=== PATIENT | female | born 1995 | race African-American/Black ===

== ENCOUNTER 2017-08-19 12:58 | Emergency (ER) | payer MEDICAID, OTHER ==
--- NOTE | 2017-08-19 14:48 | ED Physician Documentation ---
PD HPI SYNCOPE - Stated complaint Stated Complaint: PASSED OUT - Chief complaint Chief Complaint: General - History obtained from History obtained from: Patient, Family (mother) - History of Present Illness Witnessed: Witnessed Timing - onset: Today Duration: Seconds (Patient has been feeling ill, achy, tired, with fevers and URI symptoms. Less oral intake but no vomiting nor diarrhea.) Preceding symptoms: Headache (mild to moderate with standing up.), Nausea / vomiting (nausea but no vomiting), Light headed, Generalized weakness. No: Vision changes, Chest pain, Abdominal pain Associated symptoms: No: Seizure, Chest pain, Abdominal pain Contributing factors: Decreased PO intake (for few days along with viral flu- like symptoms), Just stood up Injury occurred: Fell. No: Head injury, Neck injury Similar symptoms before: Has not had sx before Recently seen: Not recently seen Review of Systems Constitutional: reports: Fever, Chills, Myalgias, Fatigue (for several days) Eyes: denies: Loss of vision, Photophobia Nose: reports: Rhinorrhea / runny nose, Congestion, Sinus pressure / pain Throat: reports: Sore throat Respiratory: reports: Cough GI: reports: Nausea. denies: Abdominal Pain, Vomiting, Diarrhea : denies: Dysuria (but says her urine has been very dark), Frequency Skin: denies: Rash Musculoskeletal: denies: Neck pain, Back pain Neurologic: reports: Generalized weakness. denies: Focal weakness, Numbness, Altered mental status, Head injury Endocrine: denies: Weight loss, Weight gain Immunocompromised: denies: Immunocompromised PD PAST MEDICAL HISTORY - Past Medical History Cardiovascular: None Respiratory: None Neuro: None Endocrine/Autoimmune: None - Present Medications Home Medications: Ambulatory Orders Medication Instructions Recorded Confirmed Dexamethasone [Decadron] 4 mg PO DAILY #5 tablet 08/19/17 Ondansetron Odt [Zofran] 4 mg TL Q6H PRN #15 tablet 08/19/17 - Allergies Allergies/Adverse Reactions: Allergies Allergy/AdvReac Type Severity Reaction Status Date / Time No Known Drug Allergies Allergy Verified 08/19/17 13:20 PD ED PE NORMAL - Vitals Vital signs reviewed: Yes - General General: Alert and oriented X 3, No acute distress, Well developed/nourished - HEENT HEENT: Atraumatic, Ears normal, Pharynx benign. 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, No motor deficit, No sensory deficit, Normal speech Eye Opening: Spontaneous Motor: Obeys Commands Verbal: Oriented GCS Score: 15 - Psych Psych: Normal mood Results - Vitals Vitals: Oxygen O2 Source Room air - Labs Labs: Laboratory Tests 08/19/17 08/19/17 08/19/17 15:50 15:50 15:50 WBC 9.4 RBC 4.57 Hgb 12.0 Hct 37.4 MCV 81.8 MCH 26.2 L MCHC 32.0 RDW 14.0 Plt Count 265 MPV 8.0 Neut # 8.0 H Lymph # 0.5 L Morton # 0.9 Eos # 0.0 Baso # 0.0 Absolute Nucleated RBC 0.00 Nucleated RBC % 0.0 Sodium 134 L Potassium 3.8 Chloride 100 L Carbon Dioxide 23 Anion Gap 11.0 BUN 9 Creatinine 0.8 Estimated GFR (MDRD) 111 Glucose 98 Calcium 9.1 Total Bilirubin 0.5 AST 14 ALT 10 Alkaline Phosphatase 52 Total Protein 8.0 Albumin 4.2 Globulin 3.8 Albumin/Globulin Ratio 1.1 Lipase < 10 L TSH 0.19 L Thyroxine (T4) Total T3 T3 Uptake Urine Color Urine Clarity Urine pH Ur Specific [place] Urine Protein Urine Glucose (UA) Urine Ketones Urine Occult Blood Urine Nitrite Urine Bilirubin Urine Urobilinogen Ur Leukocyte Esterase Ur Microscopic Review Urine Culture Comments Urine HCG, Qual 08/19/17 08/19/17 08/19/17 15:50 17:12 17:12 WBC RBC Hgb Hct MCV MCH MCHC RDW Plt Count MPV Neut # Lymph # Morton # Eos # Baso # Absolute Nucleated RBC Nucleated RBC % Sodium Potassium Chloride Carbon Dioxide Anion Gap BUN Creatinine Estimated GFR (MDRD) Glucose Calcium Total Bilirubin AST ALT Alkaline Phosphatase Total Protein Albumin Globulin Albumin/Globulin Ratio Lipase TSH Thyroxine (T4) 5.83 L Total T3 0.82 L T3 Uptake 40.2 Urine Color YELLOW Urine Clarity CLEAR Urine pH 6.0 Ur Specific [place] 1.020 1.015 Urine Protein NEGATIVE Urine Glucose (UA) NEGATIVE Urine Ketones TRACE Urine Occult Blood NEGATIVE Urine Nitrite NEGATIVE Urine Bilirubin NEGATIVE Urine Urobilinogen 0.2 (NORMAL) Ur Leukocyte Esterase NEGATIVE Ur Microscopic Review NOT INDICATED Urine Culture Comments NOT INDICATED Urine HCG, Qual NEGATIVE - Rads (name of study) chest Radiology: Prelim report reviewed (no infiltrates) PD MEDICAL DECISION MAKING - ED course Complexity details: reviewed results (Lytes and blood count okay. Not sure how to interpret the thyroid labs with both T3/T4 low and TSH low, not really making sense. Defer for now to PMD. Consider U/S of the thyroid in setting of recent viral-like illness. ), re-evaluated patient (feeling better with IV fluids and does well with postural vitals. ), considered differential, d/w patient Departure - Departure Disposition: 01 Home, Self Care Clinical Impression: Viral illness, Dehydration, Abnormal TSH Syncope Qualifiers: Syncope type: unspecified Qualified Code(s): R55 - Syncope and collapse Condition: Stable Record reviewed to determine appropriate education?: Yes Instructions: ED Dehydration, ED Viral Syndrome Follow-Up: Dolores Dominguez PA-C [Primary Care Provider] - Prescriptions: Dexamethasone [Decadron] 4 mg PO DAILY #5 tablet Ondansetron Odt [Zofran] 4 mg TL Q6H PRN #15 tablet PRN Reason: Nausea / Vomiting Comments: Drink lots of fluids. Ondansetron if needed for nausea. Tylenol or ibuprofen if needed for fevers or pains. Decadron daily for 5 more days for inflammation. At this point it sounds flu or viral-like. No signs of bacterial infection. Recheck if not improving over the next few days. Follow- up with your primary care regarding further evaluation of the abnormal thyroid tests. Forms: Activity restrictions Discharge Date/Time: 08/19/17 19:32
[2017-08-19] MEDS ORDERED: SODIUM CHLORIDE 0.9% 1,000 ML IV ONE ×2 (15:31→15:32)
[2017-08-19] MEDS ORDERED: ONDANSETRON 4 MG/2 ML VIAL IVP STA (15:31)
[2017-08-19 16:01] LABS: BASOPHILS % (AUTO) 0.4 %; LYMPHOCYTES # (AUTO) 0.5 10^3/uL (1.5-3.5); LYMPHOCYTES % (AUTO) 5.5 %; MEAN CORPUSCULAR HEMOGLOBIN 26.2 pg (27.0-31.0); MEAN CORPUSCULAR VOLUME 81.8 fL (81.0-99.0); MONOCYTES # (AUTO) 0.9 10^3/uL (0.0-1.0); NEUTROPHILS % (AUTO) 85.1 %; PLT - PLATELET COUNT 265 10^3/uL (130-450); RED BLOOD COUNT 4.57 10^6/uL (4.20-5.40); WHITE BLOOD COUNT 9.4 x10^3/uL (4.8-10.8)
--- NOTE | 2017-08-19 16:25 | XRAY Preliminary Report ---
Exam: XR CHEST 2 VIEW X-RAY IMPRESSION: Negative chest. [facility] SITE ID: [id number]
--- NOTE | 2017-08-19 16:26 | XRAY Report ---
EXAM: CHEST RADIOGRAPHY EXAM DATE: 08/19/2017 04:01 PM. CLINICAL HISTORY: Cough and dyspnea. COMPARISON: None. TECHNIQUE: 2 views. FINDINGS: Lungs/Pleura: No focal opacities evident. No pleural effusion. No pneumothorax. Normal volumes. Mediastinum: Heart and mediastinal contours are unremarkable. Other: None. IMPRESSION: Negative chest. [facility] Referring Provider Line: [phone] SITE ID: [id number]
[2017-08-19 16:34] LABS: ALBUMIN 4.2 g/dL (3.2-5.5); ALBUMIN/GLOBULIN RATIO 1.1 (1.0-2.2); ALKALINE PHOSPHATASE 52 IU/L (42-121); ALT ALANINE AMINOTRANSFERASE 10 IU/L (10-60); AST ASPARTATE AMINOTRANSFERASE 14 IU/L (10-42); BILIRUBIN,TOTAL 0.5 mg/dL (0.2-1.0); BUN - BLOOD UREA NITROGEN 9 mg/dL (6-20); CALCIUM 9.1 mg/dL (8.5-10.3); CARBON DIOXIDE - CO2 23 mmol/L (21-32); CHLORIDE 100 mmol/L (101-111); CREATININE 0.8 mg/dL (0.4-1.0); GFR - MDRD 111 (>89); GLUCOSE 98 mg/dL (70-100); SODIUM 134 mmol/L (135-145)
[2017-08-19 16:35] LABS: LIPASE < 10 U/L (22-51)
[2017-08-19 17:02] LABS: T3 UPTAKE 40.2 % (32.0-48.4)
[2017-08-19 17:03] LABS: T4 (THYROXINE) 5.83 ug/dL (6.09-12.23)
[2017-08-19 17:12] LABS: TOTAL T3 0.82 ng/mL (0.87-1.78)
[2017-08-19 17:18] LABS: BILIRUBIN,URINE NEGATIVE (NEGATIVE); GLUCOSE, URINE (UA) NEGATIVE (NEGATIVE); KETONES,URINE (UA) TRACE mg/dL (NEGATIVE); LEUKOCYTE ESTERASE, URINE NEGATIVE (NEGATIVE); NITRITE,URINE NEGATIVE (NEGATIVE); OCCULT BLOOD,URINE NEGATIVE (NEGATIVE); PROTEIN,URINE NEGATIVE (NEGATIVE); UROBILINOGEN,URINE 0.2 (NORMAL) E.U./dL (NORMAL)
[2017-08-19 17:20] LABS: CLARITY,URINE CLEAR (CLEAR)
[2017-08-19] MEDS ORDERED: DEXAMETHASONE 10 MG/ML VIAL IVP STA (17:39)
[2017-08-19 19:31] VITALS: BP 126/81
[2017-08-19 19:43] LABS: HCG UR QUAL NEGATIVE
== END 2017-08-19 19:32 | disposition home or self-care (01) ==
LOC: ED 12:58
DX: B34.9 Viral infection, unspecified (principal); E86.0 Dehydration; R94.6 Abnormal results of thyroid function studies; R55 Syncope and collapse
CPT/HCPCS: 36415; 71046; 80053; 81001; 81003; 81025; 83690; 84436; 84443; 84479; 84480; 85025; 87086; 96361; 96374; 96375; 99284

== ENCOUNTER 2017-11-15 10:27 | Outpatient (CLI) | payer OTHER ==
[2017-11-15 12:43] LABS: BASOPHILS # (AUTO) 0.1 10^3/uL (0.0-0.1); BASOPHILS % (AUTO) 0.5 %; EOSINOPHILS % (AUTO) 0.3 %; HGB - HEMOGLOBIN 11.6 g/dL (12.0-16.0); LYMPHOCYTES % (AUTO) 18.2 %; MEAN CORPUSCULAR HEMOGLOBIN 26.6 pg (27.0-31.0); MEAN CORPUSCULAR HGB CONC 32.6 g/dL (32.0-36.0); MEAN CORPUSCULAR VOLUME 81.7 fL (81.0-99.0); MEAN PLATELET VOLUME 8.7 fL (7.9-10.8); MONOCYTES # (AUTO) 0.6 10^3/uL (0.0-1.0); MONOCYTES % (AUTO) 5.6 %; NEUTROPHILS # (AUTO) 8.3 10^3/uL (1.5-6.6); NEUTROPHILS % (AUTO) 75.4 %; PLT - PLATELET COUNT 291 10^3/uL (130-450); RED BLOOD COUNT 4.34 10^6/uL (4.20-5.40); RED CELL DISTRIBUTION WIDTH 14.4 % (12.0-15.0)
[2017-11-15 13:08] LABS: ALBUMIN 4.2 g/dL (3.2-5.5); ALBUMIN/GLOBULIN RATIO 1.4 (1.0-2.2); ALKALINE PHOSPHATASE 46 IU/L (42-121); ALT ALANINE AMINOTRANSFERASE 12 IU/L (10-60); AST ASPARTATE AMINOTRANSFERASE 15 IU/L (10-42); BILIRUBIN,TOTAL 0.5 mg/dL (0.2-1.0); BUN - BLOOD UREA NITROGEN 10 mg/dL (6-20); CALCIUM 8.7 mg/dL (8.5-10.3); CARBON DIOXIDE - CO2 25 mmol/L (21-32); CHLORIDE 104 mmol/L (101-111); CHOL/HDL RATIO 2.9 (<4.4); CHOLESTEROL 141 mg/dL; CREATININE 0.6 mg/dL (0.4-1.0); GFR - MDRD 154 (>89); GLUCOSE 89 mg/dL (70-100); HDL CHOLESTEROL 49 mg/dL; SODIUM 134 mmol/L (135-145); TOTAL PROTEIN 7.3 g/dL (6.7-8.2)
[2017-11-15 13:09] LABS: HB2 TOTAL 12.4 g/dL; HEMOGLOBIN A1C 0.36 g/dL; HEMOGLOBIN A1C % 4.8 % (4.6-6.2)
[2017-11-15 13:11] LABS: THYROID STIMULATING HORMONE 0.91 uIU/mL (0.34-5.60)
[2017-11-15 13:23] LABS: FOLATE 15.65 ng/mL (5.90 - >24.8)
[2017-11-15 13:28] LABS: LDL CHOLESTEROL,DIRECT 72 mg/dL; LDLD/HDL RATIO 1.5 (<4.4)
== END 2017-11-15 10:28 ==
LOC: LAB.WCP 10:27
PROVIDERS: ATTEND Family Medicine
DX: Z00.00 Encounter for general adult medical examination without abnormal findings (principal)
CPT/HCPCS: 36415; 80053; 80061; 82306; 82607; 82746; 83036; 83721; 84443; 85025

== ENCOUNTER 2018-01-11 10:04 | Outpatient (CLI) | payer OTHER ==
[2018-01-11 12:50] LABS: BASOPHILS # (AUTO) 0.1 10^3/uL (0.0-0.1); BASOPHILS % (AUTO) 0.7 %; EOSINOPHILS # (AUTO) 0.1 10^3/uL (0.0-0.7); HGB - HEMOGLOBIN 11.3 g/dL (12.0-16.0); LYMPHOCYTES # (AUTO) 2.3 10^3/uL (1.5-3.5); LYMPHOCYTES % (AUTO) 29.3 %; MEAN CORPUSCULAR HGB CONC 32.6 g/dL (32.0-36.0); MEAN CORPUSCULAR VOLUME 82.8 fL (81.0-99.0); MEAN PLATELET VOLUME 8.7 fL (7.9-10.8); MONOCYTES # (AUTO) 0.5 10^3/uL (0.0-1.0); MONOCYTES % (AUTO) 6.8 %; NEUTROPHILS # (AUTO) 4.8 10^3/uL (1.5-6.6); NEUTROPHILS % (AUTO) 62.2 %; PLT - PLATELET COUNT 277 10^3/uL (130-450); RED BLOOD COUNT 4.17 10^6/uL (4.20-5.40); RED CELL DISTRIBUTION WIDTH 13.6 % (12.0-15.0); WHITE BLOOD COUNT 7.7 x10^3/uL (4.8-10.8)
== END 2018-01-11 10:05 | disposition home or self-care (01) ==
LOC: LAB.WCP 10:04
PROVIDERS: ATTEND Physician Assistant Medical
DX: E55.9 Vitamin D deficiency, unspecified (principal); D50.8 Other iron deficiency anemias
CPT/HCPCS: 36415; 82306; 82728; 85025

== ENCOUNTER 2019-06-17 07:00 | Outpatient (CLI) | payer OTHER ==
[2019-06-17 12:45] LABS: BASOPHILS # (AUTO) 0.1 10^3/uL (0.0-0.1); BASOPHILS % (AUTO) 0.5 %; EOSINOPHILS # (AUTO) 0.1 10^3/uL (0.0-0.7); EOSINOPHILS % (AUTO) 1.3 %; HGB - HEMOGLOBIN 10.6 g/dL (12.0-16.0); LYMPHOCYTES # (AUTO) 1.7 10^3/uL (1.5-3.5); MEAN CORPUSCULAR HEMOGLOBIN 25.5 pg (27.0-31.0); MEAN CORPUSCULAR VOLUME 84.9 fL (81.0-99.0); MEAN PLATELET VOLUME 11.1 fL (7.9-10.8); MONOCYTES # (AUTO) 0.6 10^3/uL (0.0-1.0); MONOCYTES % (AUTO) 5.4 %; NEUTROPHILS # (AUTO) 7.6 10^3/uL (1.5-6.6); NEUTROPHILS % (AUTO) 75.2 %; PLT - PLATELET COUNT 306 10^3/uL (130-450); RED BLOOD COUNT 4.16 10^6/uL (4.20-5.40); WHITE BLOOD COUNT 10.1 x10^3/uL (4.8-10.8)
[2019-06-17 13:28] LABS: HCG,QUALITATIVE BLOOD NEGATIVE
[2019-06-17 21:15] LABS: TRICHOMONAS VAGINALIS DNA NEGATIVE (NEGATIVE)
[2019-06-18 11:42] LABS: HEPATITIS C ANTIBODY NON-REACTIVE (NON-REACTIVE)
[2019-06-18 15:26] LABS: HIV AG/AB 4TH GEN NON-REACTIVE (NON-REACTIVE)
== END 2019-06-17 23:59 | disposition home or self-care (01) ==
LOC: LAB.WCP 07:00
PROVIDERS: ATTEND Physician Assistant Medical
DX: E55.9 Vitamin D deficiency, unspecified (principal); D50.8 Other iron deficiency anemias; Z11.3 Encounter for screening for infections with a predominantly sexual mode of transmission
CPT/HCPCS: 36415; 81599; 82306; 84703; 85025; 86592; 86803; 87389; 87491; 87591; 87661

== ENCOUNTER 2019-12-30 03:40 | Outpatient (CLI) | payer OTHER | END 2019-12-30 03:41 | disposition EMS.NT | LOC: EMS 03:40 | PROVIDERS: ATTEND Surgery | DX: R55 Syncope and collapse (principal); S09.93XA Unspecified injury of face, initial encounter; W18.30XA Fall on same level, unspecified, initial encounter; Y92.002 Bathroom of unspecified non-institutional (private) residence as the place of occurrence of the external cause ==

== ENCOUNTER 2019-12-30 04:29 | Emergency (ER) | payer OTHER ==
--- NOTE | 2019-12-30 05:41 | ED Physician Documentation ---
History of Present Illness - Stated complaint Stated Complaint: EYE LAC - Chief complaint Chief Complaint: Trauma Hd/Nk - History obtained from History obtained from: Patient - Additonal information Additional information: Patient comes emergency department complaining of laceration above right eye after getting up to go the bathroom and then fainting after walking back from the toilet. Patient states she had been feeling fine but had a bowel movement and then began to feel dizzy after she stood up. Patient states she last remembered approaching her bed and then woke up after what she thinks was just a second or 2 on the floor. Patient thinks she did hit her face, she thinks on the nightstand. Other than the laceration above her right eye, no other injuries were sustained. Patient states she otherwise feels fine now. No other complaints at this time. Review of Systems Ten Systems: 10 systems reviewed and negative Constitutional: reports: Reviewed and negative Eyes: reports: Reviewed and negative Ears: reports: Reviewed and negative Nose: reports: Reviewed and negative Throat: reports: Reviewed and negative Cardiac: reports: Reviewed and negative Respiratory: reports: Reviewed and negative GI: reports: Reviewed and negative : reports: Reviewed and negative Skin: reports: Laceration (s) Musculoskeletal: reports: Reviewed and negative Neurologic: reports: Reviewed and negative Psychiatric: reports: Reviewed and negative Endocrine: reports: Reviewed and negative Immunocompromised: reports: Reviewed and negative PD PAST MEDICAL HISTORY - Past Medical History Past Medical History: Yes Cardiovascular: None Respiratory: None Neuro: None Endocrine/Autoimmune: None, Other GI: None 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; hyperthyroidism-resolved - Past Surgical History Past Surgical History: No - Present Medications Home Medications: Ambulatory Orders Medication Instructions Recorded Confirmed No Known Home Medications 12/30/19 12/30/19 - Allergies Allergies/Adverse Reactions: Allergies Allergy/AdvReac Type Severity Reaction Status Date / Time No Known Drug Allergies Allergy Verified 12/30/19 04:39 - Social History Does the pt smoke?: No Smoking Status: Never smoker Does the pt drink ETOH?: Yes Does the pt have substance abuse?: No - Immunizations Immunizations are current?: Yes - POLST Patient has POLST: No PD ED PE NORMAL - Vitals Vital signs reviewed: Yes - General General: Alert and oriented X 3, No acute distress, Well developed/nourished - HEENT HEENT: PERRL, EOMI, Moist mucous membranes, Other (Laceration as noted below. No facial bony deformity. No drooping of right upper eyelid. Patient is able to fully retract her right upper eyelid with looking up.) - Neck Neck: Supple, no meningeal sign - Respiratory Respiratory: No respiratory distress - Derm Derm: Warm and dry, Other (3 cm laceration over the lateral superior orbital rim on the right. Mild soft tissue swelling. Bleeding controlled. No foreign bodies. No other skin trauma.) - Extremities Extremities: No deformity - Neuro Neuro: Alert and oriented X 3 - Psych Psych: Normal mood, Normal affect Results - Vitals Vitals: Vital Signs - 24 hr 12/30/19 04:37 Temperature 36.1 C L Heart Rate 73 Respiratory 18 Rate Blood Pressure 125/65 O2 Saturation 100 Oxygen O2 Source Room air Procedures - Laceration (location) R sup. orbital rim Wound type: Linear Neurovascular status: Sensory intact, Motor intact Tendon involvement: No: Tendon Injury Anesthesia: Marcaine 0.5% Wound Preparation: Hibiclens, Irrigated copiously NS, Wound explored, To the base, Wound edges modified. No: FB identified Skin layer closure: Nylon, Interrupted, Size #-0 - enter number (5), Sutures - enter # (6) Other: Patient tolerated well, No complications, Neurovascular intact, Dressing applied, Tetanus UTD Complexity: Intermediate PD MEDICAL DECISION MAKING - ED course Complexity details: considered differential, d/w patient ED course: I discussed with the patient and her mother, who has accompanied her, principles of wound care. We have discussed that the sutures should plan to be removed in 5 days. The wound can be checked at that time by the patient's primary care physician or urgent care. If the patient needs to return to the emergency department for this, that is also an option. We have discussed signs of infection and the usual indications for return. We have also discussed possible causes for the syncope, but patient is low risk young and healthy, and I feel that most likely, patient's syncope was benign. Departure - Departure Disposition: 01 Home, Self Care Clinical Impression: Laceration Syncope Qualifiers: Syncope type: unspecified Qualified Code(s): R55 - Syncope and collapse Condition: Stable Instructions: ED Laceration All
[2019-12-30 05:57] VITALS: BP 114/76
== END 2019-12-30 05:56 | disposition home or self-care (01) ==
LOC: ED 04:29
DX: S05.41XA Penetrating wound of orbit with or without foreign body, right eye, initial encounter (principal); W22.03XA Walked into furniture, initial encounter; Y93.01 Activity, walking, marching and hiking; Y92.003 Bedroom of unspecified non-institutional (private) residence as the place of occurrence of the external cause; R55 Syncope and collapse
CPT/HCPCS: 12052

== ENCOUNTER 2022-02-05 23:34 | Emergency (ER) | payer SELFPAY ==
[2022-02-05 23:43] VITALS: BP 157/94
--- NOTE | 2022-02-05 23:55 | ED Physician Documentation ---
History of Present Illness - Stated complaint Stated Complaint: RT KNEE PX - Chief complaint Chief Complaint: Heent - History obtained from History obtained from: Patient - History of Present Illness Timing: How many days ago (2) Pain level now: 8 Improved by: rest Worsened by: movement, weight-bearing - Additonal information Additional information: c/o right knee pain, sudden onset when she rolled over in bed and felt "popping" sensation of right knee. Pain was initially mild but it has gradually worsened since onset. Denies h/o similar symptoms. She took 200mg ibuprofen approximately 12 hours ago without noticeable improvement. Review of Systems Musculoskeletal: reports: Joint pain (right knee), Pain with weight bearing. 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 HEENT: Other Psych: None Musculoskeletal: None Derm: None - Past Surgical History Past Surgical History: No - Present Medications Home Medications: Ambulatory Orders Medication Instructions Recorded Confirmed No Known Home Medications 12/30/19 12/30/19 - Allergies Allergies/Adverse Reactions: Allergies Allergy/AdvReac Type Severity Reaction Status Date / Time No Known Drug Allergies Allergy Verified 02/05/22 23:43 - Social History Does the pt smoke?: No Smoking Status: Never smoker Does the pt drink ETOH?: Yes Does the pt have substance abuse?: No - Immunizations Immunizations are current?: Yes - POLST Patient has POLST: No PD ED PE NORMAL - Vitals Vital signs reviewed: Yes - General General: Alert and oriented X 3, No acute distress (NAD at rest, appears to be in painful discomfort with ROM right knee), Well developed/nourished - Derm Derm: Normal color, Warm and dry - Extremities Extremities: No edema - Neuro Neuro: No motor deficit, No sensory deficit PD ED PE EXPANDED - Extremities Extremities: Tenderness (lateral aspect of knee joint as well as lataeral distal thigh), Limited ROM (limited flexion (can flex to 15-20 degrees before pain prevents further flexion)), Pedal Pulses Present. No: Swelling, Bruising Results - Vitals Vitals: Oxygen O2 Source Room air PD MEDICAL DECISION MAKING - ED course Complexity details: considered differential, d/w patient ED course: the description of inciting incident (turning over in bed) would suggest etiologies that would not be diagnosed based on plain-film xrays (such as fracture, dislocation). Differential includes ligament tear, tendon sprain, muscle strain, meniscal tear, osteoarthritis flare (although has not had this pain before). The joint is not hot nor red and thus septic joint, gouty arthritis unlikely. No testing performed at this time and I discussed the reasoning as above. She declines narcotic pain medication, wants to just use [id number] medications. I encouraged her to use higher doses for the next several days, such as 600mg Q6 or 800mg Q8. Return precautions discussed, follow up for reevaluation recommended. She is provided crutches to minimize weight-bearing. Departure - Departure Disposition: 01 Home, Self Care Clinical Impression: Knee pain, right Qualifiers: Chronicity: acute Qualified Code(s): M25.561 - Pain in right knee Condition: Good Instructions: ED Knee Pain [facility] Follow-Up: Dolores Dominguez PA-C [Primary Care Provider] - Comments: As we discussed, there are no indications for emergent testing at this time. You should take ibuprofen 400mg every 4 hours as needed for pain or, if this is ineffective, 600mg every 6 hours as needed for pain. Minimize weight-bearing with the crutches for the next several days although you can continue to use the crutches longer if you continue to have pain with weight-bearing. Based on your description of sudden onset of the pain with a popping sensation while turning over in bed, I suspect an injury to a ligament (sprain), less likely a problem with the knee cartilage (meniscus, such as a tear). Most sprains will heal with anti-inflammatory (ibuprofen), rest, and minimizing weight-bearing with crutches over a week or so. Discharge Date/Time: 02/06/22 00:54
[2022-02-06] MEDS ORDERED: IBUPROFEN 600 MG TABLET PO STA (00:22)
== END 2022-02-06 00:54 | disposition home or self-care (01) ==
LOC: ED 23:34
DX: M25.561 Pain in right knee (principal)
CPT/HCPCS: 99282; 99283; A9270

== ENCOUNTER 2023-08-21 11:04 | Outpatient (CLI) | payer OTHER ==
[2023-08-21 11:43] LABS: BASOPHILS # (AUTO) 0.1 10^3/uL (0.0-0.1); BASOPHILS % (AUTO) 0.5 %; EOSINOPHILS # (AUTO) 0.2 10^3/uL (0.0-0.7); EOSINOPHILS % (AUTO) 1.2 %; HCT - HEMATOCRIT 39.1 % (37.0-47.0); HGB - HEMOGLOBIN 11.6 g/dL (12.0-16.0); LYMPHOCYTES # (AUTO) 3.1 10^3/uL (1.5-3.5); LYMPHOCYTES % (AUTO) 23.3 %; MEAN CORPUSCULAR HEMOGLOBIN 23.3 pg (27.0-31.0); MEAN CORPUSCULAR HGB CONC 29.7 g/dL (32.0-36.0); MEAN CORPUSCULAR VOLUME 78.5 fL (81.0-99.0); MEAN PLATELET VOLUME 9.4 fL (7.9-10.8); MONOCYTES # (AUTO) 0.8 10^3/uL (0.0-1.0); MONOCYTES % (AUTO) 5.6 %; NEUTROPHILS # (AUTO) 9.2 10^3/uL (1.5-6.6); PLT - PLATELET COUNT 380 10^3/uL (130-450); RED BLOOD COUNT 4.98 10^6/uL (4.20-5.40); RED CELL DISTRIBUTION WIDTH 15.4 % (12.0-15.0); WHITE BLOOD COUNT 13.3 x10^3/uL (4.8-10.8)
--- NOTE | 2023-08-21 12:11 | XRAY Report ---
PROCEDURE: Chest 2V INDICATIONS: SHORTNESS OF BREATH TECHNIQUE: 2 views of the chest were acquired. COMPARISON: None. FINDINGS: Surgical changes and devices: None. Lungs and pleura: No pleural effusions or pneumothorax. Lungs are clear. Mediastinum: Mediastinal contours appear normal. Heart size is normal. Bones and chest wall: No suspicious bony lesions. Overlying soft tissues appear unremarkable. IMPRESSION: No acute cardiopulmonary process. Reviewed by: Ambrose Cifuentes MD on 08/21/2023 12:10 PM [facility] Approved by: Ambrose Cifuentes MD on 08/21/2023 12:10 PM [facility] Station ID: [id number]
[2023-08-21 12:19] LABS: THYROID STIMULATING HORMONE 0.98 uIU/mL (0.34-5.60)
[2023-08-21 12:25] LABS: FERRITIN 27.1 ng/mL (11.0-306.8)
[2023-08-21 12:58] LABS: ESTIMATED AVERAGE GLUCOSE 91 mg/dL (70-100); HEMOGLOBIN A1c% 4.8 % (4.27-6.07)
== END 2023-08-21 11:05 | disposition home or self-care (01) ==
LOC: LAB 11:04
PROVIDERS: ATTEND Nurse Practitioner
DX: N93.9 Abnormal uterine and vaginal bleeding, unspecified (principal); R06.02 Shortness of breath
CPT/HCPCS: 36415; 82728; 83036; 84443; 85025

== ENCOUNTER 2023-09-03 06:55 | Outpatient (CLI) | payer OTHER ==
--- NOTE | 2023-09-03 12:52 | Ultrasound Report ---
PROCEDURE: Pelvic w/Transvaginal INDICATIONS: AUB TECHNIQUE: Real-time scanning was performed of the pelvic organs, with image documentation. Additional endovagi nal scanning was necessary due to incomplete visualization of the adnexal and endometrial structures by transabdominal scanning. COMPARISON: None. FINDINGS: Uterus: Uterus is anteverted and normal in size at 7.7 x 3.8 x 4.9 cm. The myometrium is heterogene ous. The endometrium measures 17 mm in combined thickness. Hyperplasia of the endometrium. Ovaries: The right ovary measures 2.0 x 1.4 x 1.8 cm, with a calculated ovarian volume of 2.5 cc. T he left ovary measures 2.9 x 1.4 x 2.6 cm, with a calculated ovarian volume of 5.5 cc. The ovaries h ave a normal sonographic appearance. Less than 12 follicles can be seen in each ovary. No adnexal m asses are seen. No cystic lesions measuring greater than 3 cm. Other: No pathologic free abdominal or pelvic fluid. Mild free fluid posterior to the cervix, likely physiologic. IMPRESSION: Endometrial hyperplasia measuring 17 mm. Consider follow-up ultrasound or endometrial sampling as cli nically indicated. Reviewed by: Natanael Salazar MD on 09/03/2023 12:51 PM PST Approved by: Natanael Salazar MD on 09/03/2023 12:51 PM PST Station ID: [id number]
== END 2023-09-03 06:56 | disposition home or self-care (01) ==
LOC: DI 06:55
PROVIDERS: ATTEND Nurse Practitioner
DX: N93.9 Abnormal uterine and vaginal bleeding, unspecified (principal); N85.00 Endometrial hyperplasia, unspecified

== ENCOUNTER 2023-12-04 09:30 | Outpatient (CLI) | payer OTHER ==
--- NOTE | 2023-12-04 15:42 | XRAY Report ---
PROCEDURE: Thoracic Spine 2V INDICATIONS: BACK PAIN, THORACIC REGION TECHNIQUE: 3 views of the thoracic spine were acquired. COMPARISON: None. FINDINGS: Bones: No fractures or dislocations. No suspicious bony lesions. 12 pairs of ribs are noted, and a ppear intact where visualized. Soft tissues: No paravertebral stripe thickening. IMPRESSION: No acute bony abnormality. No significant degenerative change. Reviewed by: Jesusita Magallon MD on 12/04/2023 3:41 PM PDT Approved by: Jesusita Magallon MD on 12/04/2023 3:41 PM PDT Station ID: [id number]
== END 2023-12-04 09:45 | disposition home or self-care (01) ==
LOC: DI.N 09:30
PROVIDERS: ATTEND Family Medicine
DX: M54.6 Pain in thoracic spine (principal)